=== PATIENT | female | born 1985 | race Asian ===

== ENCOUNTER 2024-03-14 09:19 | Outpatient (CLI) | payer BC, SELFPAY | END 2024-03-14 09:20 | disposition home or self-care (01) | LOC: NFLDREF 03-18 02:15 | PROVIDERS: Visit Provider Nurse Practitioner | DX: N89.8 Other specified noninflammatory disorders of vagina (principal); B37.31 Acute candidiasis of vulva and vagina; N30.00 Acute cystitis without hematuria; N30.01 Acute cystitis with hematuria | CPT/HCPCS: 87086 ==